=== PATIENT | female | born 1940 | race Caucasian/White ===

== ENCOUNTER 2016-11-30 12:45 | Inpatient (IN) | payer OTHER ==
--- NOTE | 2016-11-30 13:39 | EDPHY ---
H & P Stated Complaint: sent by pcp R hip fracture, surgery expecting Time Seen by Provider: 11/30/16 13:33 HPI/ROS: CHIEF COMPLAINT: Known right femoral neck fracture HISTORY OF PRESENT ILLNESS: 76-year-old female arrives via private vehicle. She initially went to the [facility] for complaints of right hip pain unable to bear weight after injuring the area anywhere between 3- 7 days ago. No direct trauma but does note that few days ago she twisted and felt a right hip pain. She was evaluated by the PA and Dr. Uribe at [facility] and they recommend she come to the ER, be admitted to the hospitalist service, remain NPO and possible surgery this evening. The patient denies: Head injury, back pain or injury, peripheral paresthesia, weakness, numbness last oral intake was 6:00 a.m. PRIMARY CARE PROVIDER: Dr. Naveen Aguirre [place] REVIEW OF SYSTEMS: A ten point review of systems was performed and is negative with the exception of the items mentioned in the HPI PAST MEDICAL & SURGICAL HISTORY: No anticoagulant use SOCIAL HISTORY:nonsmoker PHYSICAL EXAM (Prior to examination, patient consented to physical exam, hands were washed and my usual and customary physical exam procedures followed) 1) GENERAL: Well-developed, well-nourished, alert and oriented. 2) HEAD: Normocephalic, atraumatic 3) HEENT: Pupils equal, round, reactive to light bilaterally. Sclera anicteric. 4) NECK: Full range of motion, no meningeal signs. 5) LUNGS: Clear auscultation bilaterally. 6) HEART: Regular rate and rhythm, no murmur, no heave, no gallop. 7) ABDOMEN: No guarding, no rebound, no focal tenderness, 8) MUSCULOSKELETAL: Moving all extremities, no focal areas of tenderness, no obvious trauma. No peripheral edema or discoloration. 9) BACK: no visual or palpable abnormality. 10) SKIN: No rash, no petechiae. DIFFERENTIAL DIAGNOSIS: in no particular order including but not limited to fracture, dislocation, compartment syndrome, sprain, strain - Personal History Current Tetanus/Diphtheria Vaccine: Unsure Current Tetanus Diphtheria and Acellular Pertussis (TDAP): Unsure - Medical/Surgical History Hx Asthma: No Hx Chronic Respiratory Disease: No Hx Diabetes: No Hx Cardiac Disease: No Hx Renal Disease: No Hx Cirrhosis: No Hx Alcoholism: No Hx HIV/AIDS: No Hx Splenectomy or Spleen Trauma: No Other PMH: Asthma/chronic bronchitis, hx urosepsis with prolonged hospitaliztion in 2011, total bilateral knees ,. some ilateral pedal edema noted 11-28-14, incisions healing with slight erythema, seen by dr arteaga earlier this week, osteopenia - Social History Smoking Status: Never smoked Constitutional: Initial Vital Signs Temperature (C) 36.5 C 11/30/16 12:51 Heart Rate 85 11/30/16 12:51 Respiratory Rate 16 11/30/16 12:51 Blood Pressure 164/90 H 11/30/16 12:51 O2 Sat (%) 98 11/30/16 12:51 O2 Delivery Mode Room Air Allergies/Adverse Reactions: No Known Allergies Allergy (Unverified 02/17/12 16:59) Home Medications: Medication Instructions Recorded Amlodipine Besylate [Norvasc] 5 mg PO DAILY 11/28/14 Budesonide/Formoterol 160/4.5 1 puffs IH BID 11/30/16 [Symbicort 160-4.5 Mcg Inh (*)] Medical Decision Making - Diagnostics Imaging Results: Imaging Impressions Chest X-Ray 11/30/16 13:34 Impression: Normal except for minimal right middle lobe/lingular atelectasis. ED Course/Re-evaluation: The patient brought with her a printed photo of her hip x-ray which shows a right femoral neck fracture. The patient declines any imaging specifically of her hip at this time as she has just had this done at [facility]. I was contacted prior to the patient's arrival by PA with Dr. Diogenes Uribe that day request the patient be admitted the hospitalist service and they will possibly perform surgery this evening, request that she remain NPO 2:47 p.m.: Phone consultation with hospitalist Dr. Torres who will admit patient 3 pm: Phone call from Dr Uribe who will see patient in ER. - Data Points Laboratory Results: Laboratory Results 11/30/16 13:51 11/30/16 13:51 11/30/16 11/30/16 11/30/16 13:51 13:51 13:51 WBC 9.21 10^3/uL 10^3/uL (3.80-9.50) RBC 4.85 10^6/uL 10^6/uL (4.18-5.33) Hgb 14.4 g/dL g/dL (12.6-16.3) Hct 42.7 % % (38.0-47.0) MCV 88.0 fL fL (81.5-99.8) MCH 29.7 pg pg (27.9-34.1) MCHC 33.7 g/dL g/dL (32.4-36.7) RDW 13.5 % % (11.5-15.2) Plt Count 413 10^3/uL H 10^3/uL (150-400) MPV 8.9 fL fL (8.7-11.7) Neut % (Auto) 78.2 % H % (39.3-74.2) Lymph % (Auto) 13.8 % L % (15.0-45.0) Evangeline % (Auto) 6.4 % % (4.5-13.0) Eos % (Auto) 0.9 % % (0.6-7.6) Baso % (Auto) 0.4 % % (0.3-1.7) Nucleat RBC Rel Count 0.0 % % (0.0-0.2) Absolute Neuts (auto) 7.20 10^3/uL H 10^3/uL (1.70-6.50) Absolute Lymphs (auto) 1.27 10^3/uL 10^3/uL (1.00-3.00) Absolute Monos (auto) 0.59 10^3/uL 10^3/uL (0.30-0.80) Absolute Eos (auto) 0.08 10^3/uL 10^3/uL (0.03-0.40) Absolute Basos (auto) 0.04 10^3/uL 10^3/uL (0.02-0.10) Absolute Nucleated RBC 0.00 10^3/uL 10^3/uL (0-0.01) Immature Gran % 0.3 % % (0.0-1.1) Immature Gran # 0.03 10^3/uL 10^3/uL (0.00-0.10) PT 13.3 SEC SEC (12.0-15.0) INR 1.02 (0.83-1.16) APTT 24.6 SEC SEC (23.0-38.0) Sodium 140 mEq/L mEq/L (134-144) Potassium 4.6 mEq/L mEq/L (3.5-5.2) Chloride 103 mEq/L mEq/L (97-110) Carbon Dioxide 23 mEq/l mEq/l (22-31) Anion Gap 14 mEq/L mEq/L (8-16) BUN 31 mg/dL H mg/dL (7-23) Creatinine 0.8 mg/dL mg/dL (0.6-1.0) Estimated GFR > 60 Glucose 82 mg/dL mg/dL (70-100) Calcium 10.5 mg/dL H mg/dL (8.5-10.4) Medications Given: Discontinued Medications Hydromorphone HCl (Dilaudid) 0.5 mg IVP EDNOW ONE Stop: 11/30/16 13:56 Last Admin: 11/30/16 14:11 Dose: 0.5 mg Sodium Chloride (Ns) 500 mls @ 0 mls/hr IV ONCE ONE PRN Reason: Wide Open Stop: 11/30/16 14:56 Last Admin: 11/30/16 14:58 Dose: 500 mls Departure - Departure Disposition: [facility] In[facility] Acute Clinical Impression: Fracture of femoral neck, right Qualifiers: Encounter type: initial encounter Fracture type: closed Qualified Code(s): S72.001A - Fracture of unspecified part of neck of right femur, initial encounter for closed fracture Condition: Fair
[2016-11-30] MEDS ORDERED: HYDROmorphONE/DILAUDID 1 MG/ML SYR IVP ONE (13:55)
[2016-11-30 14:05] LABS: % IMMATURE GRANULYOCYTES 0.3 % (0.0-1.1); ABSOLUTE IMMATURE GRANULOCYTES 0.03 10^3/uL (0.00-0.10); ADD DIFF? NO; ADD MORPH? NO; ADD SCAN? NO; ATYPICAL LYMPHOCYTE FLAG 0 (0-99); FRAGMENT RBC FLAG 0 (0-99); HEMATOCRIT 42.7 % (38.0-47.0); HEMOGLOBIN 14.4 g/dL (12.6-16.3); LEFT SHIFT FLG 0 (0-99); LIPEMIA HEMOLYSIS FLAG 80 (0-99); MEAN CELL HEMOGLOBIN 29.7 pg (27.9-34.1); MEAN CELL HEMOGLOBIN CONCENTR. 33.7 g/dL (32.4-36.7); MEAN PLATELET VOLUME 8.9 fL (8.7-11.7); PLATELET CLUMPS FLAG 0 (0-99); PLATELET COUNT 413 10^3/uL (150-400); RED BLOOD CELL COUNT 4.85 10^6/uL (4.18-5.33); RED CELL DISTRIBUTION WIDTH 13.5 % (11.5-15.2)
[2016-11-30] MEDS ORDERED: ONDANSETRON 4 MG/2 ML VIAL ONE (14:05)
[2016-11-30 14:23] LABS: INR 1.02 (0.83-1.16); PROTIME(PATIENT) 13.3 SEC (12.0-15.0)
[2016-11-30 14:24] LABS: APTT 24.6 SEC (23.0-38.0)
[2016-11-30 14:28] LABS: ANION GAP 14 mEq/L (8-16); CALCIUM 10.5 mg/dL (8.5-10.4); CARBON DIOXIDE 23 mEq/l (22-31); CHLORIDE 103 mEq/L (97-110); CREATININE 0.8 mg/dL (0.6-1.0); GLOMERULAR FILTRATION RATE > 60; GLUCOSE 82 mg/dL (70-100); POTASSIUM 4.6 mEq/L (3.5-5.2); SODIUM 140 mEq/L (134-144)
[2016-11-30] MEDS ORDERED: NS 500 ML IV ONE (14:55)
--- NOTE | 2016-11-30 15:31 | SOAPPROG ---
SOAP Progress Note Assessment/Plan: Assessment: 76 female with displace right femoral neck fracture Consult dictated. P: OR Sat about 3 pm. Plan SANYA Plan: SANYA on 11/30/16 15:30 Objective: Vital Signs Temp Pulse Resp BP Pulse Ox 36.5 C 85 16 164/90 H 98 11/30/16 12:51 11/30/16 12:51 11/30/16 12:51 11/30/16 12:51 11/30/16 12:51 PT 13.3 SEC (12.0-15.0) 11/30/16 13:51 INR 1.02 (0.83-1.16) 11/30/16 13:51 ICD10 Worksheet Patient Problems: Problems Problem Status Onset Fracture of femoral neck, right Acute
--- NOTE | 2016-11-30 15:32 | CPEKG ---
Heart Rate: 86 RR Interval: 698 P-R Interval: 176 QRSD Interval: 84 QT Interval: 380 QTC Interval: 455 P [place]: 79 QRS [place]: 55 T Wave [place]: 63 EKG Severity - BORDERLINE ECG - EKG Impression: SINUS RHYTHM EKG Impression: BORDERLINE INFERIOR Q WAVES Electronically Signed By: Homar Griffin 30-Nov-2016 20:38:36
[2016-11-30] MEDS ORDERED: ENOXAPARIN 40 MG/0.4 ML SYR SC SCH (16:08)
[2016-11-30] MEDS ORDERED: ONDANSETRON 4 MG/2 ML VIAL IVP PRN (16:08)
[2016-11-30] MEDS ORDERED: ACETAMINOPHEN 325 MG TAB PO PRN (16:08)
--- NOTE | 2016-11-30 16:51 | GHP ---
[f rep st] HISTORY AND PHYSICAL DATE OF ADMISSION: 11/30/2016 CHIEF COMPLAINT: Hip pain. HISTORY OF PRESENT ILLNESS: This is a 76-year-old female who presents with complaints of right hip pain. The patient describes, over the course of the preceding 1-1/2 weeks, having groin discomfort on the right side with activity out in the yard. Patient noted discomfort that she suspected was fr om over-extending herself, stretching, and reaching while gardening. Patient had bilateral knee rep lacements and has limited ability to kneel, so finds herself in unusual positions in the yard trying to get things planted. Patient then iced, took [id number] pain medications, had some resolut ion. Then 48 hours prior to presentation, had more severe pain after an afternoon in the garden, pa rticularly with a semi-kneeling episode that she recalls placed a lot of strain on her right hip. P atevelina, again, iced and did not have improvement in her symptoms, and then noted, over the next 48 h ours, that the pain was so severe that she went from being able to ambulate, to not ambulate indepen dently but with a walker, to not being able to ambulate with her walker. Therefore, called her orth opedic surgeon for evaluation. She presented to the clinic today, and patient was noted to have a d isplaced right femoral neck fracture. Patient was transferred to the emergency department for evalu ation and admission for repair. In the ED, the patient is denying any chest pain, shortness of jitendra th. No nausea, vomiting. She is having right hip and leg discomfort. She is hungry. Denies any d ysuria, diarrhea, hematuria, or lower extremity edema. PAST MEDICAL HISTORY: 1. Episode of E coli sepsis that she reports she had multiple harassing resuscitations through with remnant renal dysfunction. 2. Asthma. 3. Arthritis with bilateral knee replacements. 4. Hypertension. SOCIAL HISTORY: Negative for tobacco. Occasional alcohol. No illicit drugs or marijuana. FAMILY HISTORY: Positive for arthritis. REVIEW OF SYSTEMS: A 10-point review of systems is negative with the exception of that reported in the HPI. ADVANCED DIRECTIVES: The patient wishes to be full cor, full tube. Her daughters would be her medi desi decision makers. PHYSICAL EXAMINATION: VITAL SIGNS: Blood pressure 164/90, heart rate 85, respiratory rate 16, 98% on room air, 36.5. GENERAL: This is a very healthy-appearing elderly female in no acute distress. HEENT: Notable for moist mucous membranes. Eye exam is negative for any icterus. CARDIAC: Patien t is regular rate and rhythm. PULMONARY: Good respiratory effort. Clear to auscultation bilateral ly. GASTROINTESTINAL: Positive bowel sounds. Abdomen is soft and nontender in all 4 quadrants. M USCULOSKELETAL: Negative for any lower extremity edema. Patient has pain of the right hip with juana n passive range of motion. NEUROLOGIC: She is alert and oriented x3. PSYCHIATRIC: She is pleasan t and cooperative on interview and examination. DATA: White count 9.2, hematocrit 42.7, platelets of 413. INR of 1.02. Creatinine is 0.8, BUN 31, sodium 142. Chest x-ray, which I personally reviewed and interpreted, shows no acute infiltrates o r edema. ASSESSMENT AND PLAN: This is a 76-year-old female, presenting with a right femoral neck fracture. 1. Acute displaced right femoral neck fracture. Patient will be made n.p.o. after breakfast tomorr ow for anticipated surgical repair by Dr. Uribe tomorrow afternoon. Will give 1 dose of Lovenox th is evening, then hold in the morning for surgery. Will continue IV pain medications p.r.n. for pain . 2. Asthma. The patient's lungs are clear. Will continue her home medications without alteration. 3. Chronic kidney disease. Patient's creatinine is 0.8 at presentation. Will simply follow. 4. Hypertension. Will continue patient's single agent antihypertensive. 5. Prophylaxis with Lovenox x1 and SCDs. 6. Diet. Regular until tomorrow morning. Disposition, expecting greater than 2 midnights. The patient is presenting with a displaced hip fra cture, requiring repair. /[id number]/MODL
--- NOTE | 2016-11-30 17:41 | GCON ---
[f rep st] CONSULTATION ORTHOPEDIC CONSULTATION DATE OF CONSULTATION: 11/30/2016 PROBLEM: Displaced right femoral neck fracture. HISTORY OF PRESENT ILLNESS: The patient is 76 years old. She has had mild pain in her right hip for about 2 weeks. Last Saturday, the hip became quite painful. She is not aware of any specific trauma. By Saturday, she felt better, and she tried to do some gardening work. After that, the hip was more painful. She has been limping around on it this week. She presented to my office this morning. Films there showed a displaced right femoral neck fracture. She is admitted for surgical treatment of the femoral neck fracture. PAST MEDICAL HISTORY: She is treated for hypertension and asthma. CURRENT MEDICATIONS: Amlodipine and a Symbicort inhaler. DRUG ALLERGIES: None. PHYSICAL EXAMINATION: She is a thin, alert, healthy-appearing elderly woman. Exam of her right leg shows pain in the hip with any attempts at motion. Her sciatic nerve is intact. IMAGING: Her films show a displaced femoral neck fracture. Moderate osteopenia. IMPRESSION ON ADMISSION: 1. Displaced right femoral neck fracture. 2. Treatment for hypertension. 3. Treatment for asthma. PLAN: She will undergo a right total hip arthroplasty for treatment of her displaced femoral neck fracture. The surgery has been described to her and to her daughter, including the risks, complications, expectations, and recovery time. Surgical and nonsurgical options have been reviewed with them. All of her questions have been answered, and she consents to surgery. /[id number]/MODL MTDD
[2016-11-30] MEDS: HYDROmorphONE/DILAUDID 1 MG/ML SYR IVP PRN (18:58)
[2016-11-30] MEDS ORDERED: HEPARIN 5,000 UNIT/0.5 ML SYR SC ONE (21:27)
[2016-11-30] MEDS: BUDESONIDE/FORMOTEROL 160/4.5 60 PUFFS/MDI IH SCH (22:09)
[2016-12-01] MEDS: HYDROmorphONE/DILAUDID 1 MG/ML SYR IVP PRN ×5 (01:09→22:17)
[2016-12-01 04:56] LABS: % IMMATURE GRANULYOCYTES 0.2 % (0.0-1.1); ABSOLUTE IMMATURE GRANULOCYTES 0.01 10^3/uL (0.00-0.10); ADD DIFF? NO; ADD MORPH? NO; ADD SCAN? NO; ATYPICAL LYMPHOCYTE FLAG 10 (0-99); FRAGMENT RBC FLAG 0 (0-99); HEMATOCRIT 36.9 % (38.0-47.0); HEMOGLOBIN 12.1 g/dL (12.6-16.3); LEFT SHIFT FLG 0 (0-99); LIPEMIA HEMOLYSIS FLAG 80 (0-99); MEAN CELL HEMOGLOBIN 29.5 pg (27.9-34.1); MEAN CELL HEMOGLOBIN CONCENTR. 32.8 g/dL (32.4-36.7); MEAN PLATELET VOLUME 9.2 fL (8.7-11.7); PLATELET CLUMPS FLAG 0 (0-99); PLATELET COUNT 344 10^3/uL (150-400); RED CELL DISTRIBUTION WIDTH 13.8 % (11.5-15.2)
[2016-12-01] MEDS: BUDESONIDE/FORMOTEROL 160/4.5 60 PUFFS/MDI IH SCH ×2 (08:14→19:52)
[2016-12-01] MEDS: amLODIPine BESYLATE 5 MG TAB PO SCH (08:59)
[2016-12-01] MEDS ORDERED: CHLORHEXIDINE GLUC HIBICLENS 118 ML BTL TP ONE ×2 (11:30→13:00)
[2016-12-01] MEDS ORDERED: CEFAZOLIN 2 GM/DEXTR 100 ML IV ONE (13:00)
[2016-12-01] MEDS ORDERED: FAMOTIDINE 20 MG TAB PO ONE (13:00)
[2016-12-01] MEDS ORDERED: ROPI/epiNEPH/KETOROLAC JOINT COCKTAIL IU ONE (13:00)
[2016-12-01] MEDS ORDERED: TRANEXAMIC ACID 1,100 MG in NS 100 ML IV ONE (13:00)
[2016-12-01] MEDS ORDERED: ACETAMINOPHEN 325 MG TAB PO ONE (13:00)
[2016-12-01] MEDS ORDERED: DEXAMETHASONE 4 MG/ML VIAL IVP ONE (13:00)
[2016-12-01] MEDS ORDERED: POVIDONE-IODINE 20 ML in SODIUM CL IRRIG SOLUTION 500 ML IRR ONE (13:00)
[2016-12-01] MEDS ORDERED: CEFAZOLIN 2 GM/DEXTROSE/100 ML BAG IV ONE (13:23)
[2016-12-01] MEDS ORDERED: ceFAZolin 1 GM/5 ML SYR ONE (13:35)
[2016-12-01] MEDS ORDERED: fentaNYL 100 MCG/2 ML INJ ONE ×2 (13:49→16:42)
[2016-12-01] MEDS ORDERED: PROPOFOL 200 MG/20 ML VIAL ONE ×2 (13:49)
[2016-12-01] MEDS ORDERED: DEXAMETHASONE 4 MG/ML VIAL ONE ×2 (13:50→15:03)
[2016-12-01] MEDS ORDERED: PROPOFOL/EMULSION 500 MG/50 ML BOTTLE IV ONE ×2 (13:54→15:42)
[2016-12-01] MEDS ORDERED: LIDOCAINE 2% 100 MG/5 ML SYR ONE (13:54)
[2016-12-01] MEDS ORDERED: ROCURONIUM 50 MG/5 ML VIAL ONE (13:54)
[2016-12-01] MEDS ORDERED: ACETAMINOPHEN 325 MG TAB ONE (14:09)
--- NOTE | 2016-12-01 14:18 | HOSPPROG ---
Hospitalist Progress Note Assessment/Plan: 76y female with c/o right hip pain. This is my first encounter, chart reviewed. D/W RN. #R femoral neck fx to OR today #Pain stable #Asthma stable #CKD stable #HTN cont meds #Dispo unclear to OR today PT/OT after Subjective: Feeling well. Some pain. No other specific issues. Objective: Vital Signs Temp Pulse Resp BP Pulse Ox 37.1 C 96 18 161/69 H 96 12/01/16 12:00 12/01/16 12:00 12/01/16 12:00 12/01/16 12:00 12/01/16 12:00 Laboratory Results 12/01/16 04:15 11/30/16 12/01/16 12/02/16 05:59 05:59 05:59 Intake Total 850 Output Total 275 400 Balance 575 -400 PT 13.3 SEC (12.0-15.0) 11/30/16 13:51 INR 1.02 (0.83-1.16) 11/30/16 13:51 - Physical Exam Constitutional: no apparent distress, appears nourished, uncomfortable Eyes: PERRL, anicteric sclera, EOMI Ears, Nose, Mouth, Throat: moist mucous membranes, hearing normal, ears appear normal Cardiovascular: No JVD, No tachycardia, No edema Respiratory: no respiratory distress, no rales or rhonchi, reduced air movement Gastrointestinal: No tenderness, No ascites, No guarding Skin: warm, normal color, No erythema Musculoskeletal: pain with ROM, muscular tenderness, generalized weakness Neurologic: AAOx3 Psychiatric: interacting appropriately, not anxious, not encephalopathic, thought process linear ICD10 Worksheet Patient Problems: Problems Problem Status Onset Fracture of femoral neck, right Acute
[2016-12-01] MEDS ORDERED: VANCOMYCIN 1 GM VIAL ONE (14:40)
[2016-12-01] MEDS ORDERED: ALBUTEROL HFA ANES ONLY 200 PUFFS/8.5 GM MDI IH ONE (14:40)
[2016-12-01] MEDS ORDERED: ONDANSETRON 4 MG/2 ML VIAL ONE (15:03)
[2016-12-01] MEDS ORDERED: HYDROmorphONE/DILAUDID 2 MG/ML INJ ONE ×2 (15:05→16:42)
[2016-12-01] MEDS ORDERED: SUGAMMADEX SODIUM 200 MG/2 ML VIAL IVP ONE (15:22)
[2016-12-01] MEDS ORDERED: DIPHENOXYLATE/ATROPINE LOMOTIL 1 TAB PO PRN (16:26)
[2016-12-01] MEDS ORDERED: PHARMACY PAIN CONSULT 1 EA MISC PRN (16:26)
[2016-12-01] MEDS ORDERED: diphenhydrAMINE 25 MG CAP PO PRN (16:26)
[2016-12-01] MEDS ORDERED: PROMETHAZINE HCL 25 MG/ML INJ IVP PRN (16:26)
[2016-12-01] MEDS ORDERED: MAGNESIUM HYDROXIDE 30 ML UDCUP PO PRN (16:26)
[2016-12-01] MEDS ORDERED: CYCLOBENZAPRINE 10 MG TAB PO PRN (16:26)
[2016-12-01] MEDS ORDERED: traMADol 50 MG TAB PO PRN (16:26)
[2016-12-01] MEDS ORDERED: LACTULOSE 20 GM/30 ML UDCUP PO PRN (16:26)
[2016-12-01] MEDS ORDERED: TEMAZEPAM 15 MG CAP PO PRN (16:26)
[2016-12-01] MEDS ORDERED: METOCLOPRAMIDE 10 MG/2 ML VIAL IVP PRN (16:26)
[2016-12-01] MEDS ORDERED: KETOROLAC 30 MG/1 ML SDV IVP PRN (16:26)
[2016-12-01] MEDS ORDERED: BISACODYL 10 MG SUPP PR PRN (16:26)
[2016-12-01] MEDS ORDERED: POLYETHYLENE GLYCOL 3350 17 GM PKT PO PRN (16:26)
--- NOTE | 2016-12-01 16:26 | POSTOPPROG ---
Post Op Note Date of Operation: 12/01/16 Surgeon: Diogenes Uribe Operator Assistant I Cementing: Dr. Cruz Anesthesiologist: Pamela Anesthesia: GET(General Endotracheal) Post-op Diagnosis: R femoral neck fracture Procedure: cemented R SANYA Inf/Abcess present in the surg proc area at time of surgery?: No EBL: 100-500
[2016-12-01] MEDS ORDERED: LR 1,000 ML IV SCH (16:30)
[2016-12-01] MEDS: SENNOSIDES/DOCUSATE SODIUM TAB PO SCH (19:51)
[2016-12-01] MEDS: FAMOTIDINE 20 MG TAB PO SCH (19:51)
[2016-12-01] MEDS: ONDANSETRON DISINTEGRATING 4 MG TAB PO PRN (19:52)
[2016-12-01] MEDS: oxyCODONE IR 5 MG TAB PO PRN (19:52)
[2016-12-01] MEDS: ASPIRIN 325 MG TAB PO SCH (19:52)
[2016-12-01] MEDS: ceFAZolin 2 GM/DEXTROSE 100 ML IV SCH (22:11)
[2016-12-02] MEDS: ONDANSETRON DISINTEGRATING 4 MG TAB PO PRN ×2 (04:23→08:24)
[2016-12-02] MEDS: oxyCODONE IR 5 MG TAB PO PRN ×3 (04:23→20:27)
[2016-12-02] MEDS: ceFAZolin 2 GM/DEXTROSE 100 ML IV SCH (04:24)
--- NOTE | 2016-12-02 05:06 | GOP ---
[f rep st] OPERATIVE REPORT DATE OF OPERATION: 12/01/2016 SURGEON: Diogenes Uribe MD FINAL TESTER: Naveen Cruz MD ANESTHESIA: General. ANESTHESIOLOGIST: Allen Santiago MD PREOPERATIVE DIAGNOSIS: POSTOPERATIVE DIAGNOSIS: Right hip displaced femoral neck fracture. PROCEDURE PERFORMED: Cemented right total hip arthroplasty. Elburn chrome femoral head on highly c ross-linked polyethylene cup liner. FINDINGS: DESCRIPTION OF PROCEDURE: The patient was given 2 g of preoperative IV Ancef within 60 minutes of s urgery. She also received IV tranexamic acid at a dose of 20 mg/kg. She is placed on the operating room table and given general anesthesia by Dr. Santiago. A Rodriguez catheter was not used. She wore a T ED stocking and SCD on the nonoperative leg. She was rolled to the left lateral decubitus position. The position was secured with the pegboard table attachment. An axillary roll was used and all pr essure points were carefully padded. I was careful to lock her pelvis in a vertical position. Her perineum was isolated with plastic adhesive drapes. Her right hip and right lower extremity were pr epped with ChloraPrep. They were draped free using sterile sheets, stockinette, and Ioban plastic a dhesive drape. The World Health Organization time-out was performed to verify the correct patient, identity and the correct surgical side and site. The [place] time-out was also performed. I made a 5-inch straight oblique posterolateral hip skin incision. The subcutaneous tissues were sh arply divided and hemostasis was obtained using electrocautery. Her fascia doron was identified and split along the axis of its fibers. I curved posteriorly and proximally and split the fascia of glu teus rosa and bluntly split the muscle fibers in line with their orientation. The Charnley self- retaining retractor was inserted. Her sciatic nerve was located and protected throughout the proced ure. The external rotators and the posterior hip capsule were divided at separate layers at the bas e of the femoral neck, tagged and reflected posteriorly. A smooth 8-inch Steinmann pin was inserted vertically into the ilium superior to the acetabulum to act as a retractor. The fractured femoral head was dislocated posteriorly and removed. I osteotomized the neck at the appropriate level and i nclination. I was careful to preserve all the anterior and posterior capsule. The remnant of the labrum was exc ised. The femur was prepared first. This allowed me to sap hana developer the amount of natural femoral neck anteversi on. This, in turn, allowed me to later determine the correct amount of cup anteversion. She had ap proximately 15-20 degrees of natural femoral neck anteversion. The canal was opened laterally with a box chisel. I broached sequentially up to a size 5. I was using the Accolate 2 stem. I was care ful to lateralize adequately. Appropriate retractors were inserted to expose the acetabulum. The acetabulum was reamed sequential ly up to 49 mm. I selected a 50 mm Kimo Tritanium cluster hole hemispherical shell. This was ta pped securely into place in the proper degree of inclination and anteversion. I used the transverse acetabular ligament and other her other natural acetabular bony landmarks to help me properly orien t the cup. I inserted a 30 mm and a 20 mm supplemental fixation screw through the shell. I also in serted a screw and metal dome hole plug. I performed a series of trial reductions, and concluded that the size 5 stem with a -4 mm neck lengt h and a 32 mm head with a 10 degree lipped liner gave me the proper combination of appropriate lengt h and good anterior and posterior stability. The 10 degree lipped Kimo X3 highly cross-linked polyethylene liner was inserted and tapped laila knight into place. Her canal was prepared for cementing. It was carefully cleaned with the pulsating lavage and with a bottle brush. A plastic distal cement restrictor was inserted. I packed the sandra l with epinephrine-soaked sponge. A double batch of methylmethacrylate high viscosity cement with 2 g of added vancomycin powder was mixed. It was inserted down the canal and pressurized. I selecte d the Mcgill Accolate 2, CC stem. A 12 mm distal centralizer was attached. The cement was injecte d and pressurized. The stem was then inserted. It was held in the proper position while the cement hardened. Excess cement was removed before it hardened. I did 1 final trial reduction with a 32 m m head and a -4 mm neck length. She had excellent anterior and posterior stability and appropriate length. The 32 mm Elburn chrome Mcgill head with a -4 mm neck length was tapped securely onto the clean trunnion. The acetabulum was irrigated and cleaned and the hip was reduced 1 final time. 40 mL of the joint anesthetic cocktail were injected into the capsule, the deep musculature and the subcutaneous tissues along the skin edges. Her sciatic nerve was reinspected and looked unharmed. The external rotators and the posterior hip capsule were repaired in separate layers with #2 FiberWi re sutures through drill holes in the greater trochanter. This provided a strong posterior capsular and external rotator repair. The fascia doron was closed first with first with two #2 arxeoq-od-rek ht FiberWire sutures followed by a running #2 barbed Ethicon Stratafix PDO suture. The subcutaneous tissues were closed in layers with interrupted 2-0 Monocryl sutures. The skin was closed with a ru nning 3-0 barbed Ethicon Stratafix Monoderm subcuticular suture. The skin edges were reapproximated and sealed with Dermabond glue. The wound was covered with a strip of Telfa, and everything was he ld in place with a piece of clear plastic Tegaderm. A long-leg RIDGE stocking and SCD were applied to her right lower extremity. She wore a stocking and SCD on the opposite leg during the procedure. An abduction pillow was placed between her knees. Tash leon was awakened from anesthesia and rolled to the supine position on her [facility]. She was ta danica to PACU in satisfactory condition. There were no recognized intraoperative complications. The estimated blood loss was about 200 mL. The sponge and needle count were correct on 2 occasions. I used a Mcgill Tritanium hemispherical cluster hole acetabular shell with an outside diameter of 5 0 mm. The liner was a Kimo X3 10-degree lipped highly cross-linked liner with an inside diameter of 32 mm. I used a 20 mm and a 30 mm supplemental fixation screws through the acetabular shell. T he femoral component was a cemented Mcgill Accolate C in a size 5 with standard offset. The femora l head was a Mcgill cobalt chrome head with a -4 mm neck length and a [address] Mark Cruz, acted as a surgical sales representative. His assistance was a medical necessity. POSTOPERATIVE DIAGNOSIS: Right hip displaced femoral neck fracture. /[id number]/[facility]
[2016-12-02 05:24] LABS: HEMATOCRIT 37.7 % (38.0-47.0); HEMOGLOBIN 12.4 g/dL (12.6-16.3)
--- NOTE | 2016-12-02 08:56 | HOSPPROG ---
Hospitalist Progress Note Assessment/Plan: 76y female with c/o right hip pain. #R femoral neck fx POD #1 #Pain stable #Asthma stable #CKD stable #Nausea/emesis likely related to surgery cont supportive care #Acute hypoxemia related to surgery ATX aggressive therapy #HTN cont meds #Dispo unclear home in am with HHC? PT/OT after Subjective: Up in chair. Feels ok. Still having some nausea. Pain controlled. Objective: Vital Signs Temp Pulse Resp BP Pulse Ox 36.8 C 99 16 142/59 H 90 L 12/02/16 04:04 12/02/16 08:00 12/02/16 08:00 12/02/16 08:00 12/02/16 08:00 Laboratory Results 12/02/16 04:22 12/01/16 12/02/16 12/03/16 05:59 05:59 05:59 Intake Total 850 1920 Output Total 275 1100 Balance 575 820 PT 13.3 SEC (12.0-15.0) 11/30/16 13:51 INR 1.02 (0.83-1.16) 11/30/16 13:51 - Physical Exam Constitutional: no apparent distress, appears nourished, not in pain Eyes: PERRL, anicteric sclera, EOMI Ears, Nose, Mouth, Throat: moist mucous membranes, hearing normal Cardiovascular: regular rate and rhythym, No JVD, No edema Respiratory: no respiratory distress, reduced air movement Gastrointestinal: normoactive bowel sounds, No tenderness, No ascites Skin: warm, normal color Musculoskeletal: pain with ROM, muscular tenderness, generalized weakness Neurologic: AAOx3 Psychiatric: interacting appropriately, not anxious, not encephalopathic ICD10 Worksheet Patient Problems: Problems Problem Status Onset Fracture of femoral neck, right Acute
[2016-12-02] MEDS: amLODIPine BESYLATE 5 MG TAB PO SCH (09:16)
[2016-12-02] MEDS: ASPIRIN 325 MG TAB PO SCH (09:17)
[2016-12-02] MEDS: SENNOSIDES/DOCUSATE SODIUM TAB PO SCH ×2 (09:18→20:27)
[2016-12-02] MEDS: FAMOTIDINE 20 MG TAB PO SCH ×2 (09:18→20:27)
[2016-12-02] MEDS: FERROUS SULFATE 140 MG TAB.ER PO SCH (09:18)
--- NOTE | 2016-12-02 09:27 | SOAPPROG ---
SOAP Progress Note Assessment/Plan: Assessment: 76 female with displace right femoral neck fracture Consult dictated. P: OR Sat about 3 pm. Plan SANYA Plan: SANYA on 11/30/16 15:30 12/02/16 09:25 Afebrile. Awake and alert. Mild pain. Walking in room. Sciatic nerve intact. Dsg is dry. No swelling. Films look good. H/H is good. P: DC on Mon. Dsg is water proof. Can shower.' Give 2 page DC instruction sheet which is in the chart. Weight bear as tolerated. Abd pillow in bed for 3 weeks. RIDGE hose for 1 week. ASA 325 daily for 21 days. Office appt in 3 weeks. Objective: Vital Signs Temp Pulse Resp BP Pulse Ox 36.8 C 99 16 142/59 H 90 L 12/02/16 04:04 12/02/16 08:00 12/02/16 08:00 12/02/16 08:00 12/02/16 08:00 Laboratory Results 12/02/16 04:22 12/01/16 12/02/16 12/03/16 05:59 05:59 05:59 Intake Total 850 1920 Output Total 275 1100 Balance 575 820 PT 13.3 SEC (12.0-15.0) 11/30/16 13:51 INR 1.02 (0.83-1.16) 11/30/16 13:51 ICD10 Worksheet Patient Problems: Problems Problem Status Onset Fracture of femoral neck, right Acute
[2016-12-02] MEDS: BUDESONIDE/FORMOTEROL 160/4.5 60 PUFFS/MDI IH SCH ×2 (09:42→20:27)
[2016-12-03] MEDS: oxyCODONE IR 5 MG TAB PO PRN ×3 (03:57→08:51)
[2016-12-03 05:05] LABS: HEMATOCRIT 30.7 % (38.0-47.0); HEMOGLOBIN 10.2 g/dL (12.6-16.3)
[2016-12-03 07:18] VITALS: BP 140/54; PULSE 87; RESP 16; TEMP 99.2
[2016-12-03] MEDS: ASPIRIN 325 MG TAB PO SCH (08:42)
[2016-12-03] MEDS: amLODIPine BESYLATE 5 MG TAB PO SCH (08:43)
[2016-12-03] MEDS: SENNOSIDES/DOCUSATE SODIUM TAB PO SCH (08:43)
[2016-12-03] MEDS: FERROUS SULFATE 140 MG TAB.ER PO SCH (08:43)
[2016-12-03] MEDS: FAMOTIDINE 20 MG TAB PO SCH (08:43)
[2016-12-03 08:46] VITALS: O2SAT 88
--- NOTE | 2016-12-03 09:14 | PDIAF ---
- Diagnosis Diagnosis: hip fx Code Status: Full Code - Medication Management Discharge Medications: Medications to Continue on Transfer Amlodipine Besylate [Norvasc] 5 mg PO DAILY 11/28/14 [Last Taken 11/30/16] Budesonide/Formoterol 160/4.5 [Symbicort 160-4.5 Mcg Inh (*)] 1 puffs IH BID [Last Taken 11/30/16 one dose] Aspirin [Aspirin 325 mg (*)] 325 mg PO DAILY tab 12/03/16 [Last Taken Unknown] Famotidine [Pepcid 20 MG (*)] 20 mg PO BID #0 tab 12/03/16 [Last Taken Unknown] Ferrous Sulfate [Slow Fe 140 MG (*)] 140 mg PO DAILY #30 tab.er 12/03/16 [Last Taken Unknown] Polyethylene Glycol 3350 [Miralax 17 gm (*)] 17 gm PO DAILY PRN #0 pkt 12/03/16 [Last Taken Unknown] Sennosides/Docusate Sodium [Senokot-S] 1 - 2 tab PO BID tab 12/03/16 [Last Taken Unknown] celeCOXIB [Celebrex (*)] 200 mg PO DAILY #30 cap 12/03/16 [Last Taken Unknown] oxyCODONE IR [Oxycodone Ir (*)] 5 - 10 mg PO Q3HRS PRN #20 tab 12/03/16 [Last Taken Unknown] Discharge Medications: Refer to the Discharge Home Medication list for PRN reason. PICC Care - Routine: N/A - Orders Services needed: Home Care, Physical Therapy, Occupational Therapy Home Care Face to Face: I certify that this patient was under my care and that I had the required [id number] encounter meeting the encounter requirements on the discharge day. My findings support the fact that the patient is homebound as defined in CMS Chapter 7 Medicare Benefits Manual 30.1.1, The condition of the patient is such that there exists a normal inability to leave home and consequently, leaving home would require a considerable and taxing effort. Diet Recommendation: no restrictions on diet - Follow Up Care Current Providers and Referrals: Irlanda Torres MD [Medical Doctor] - 12/21/16 10:15 am Diogenes Uribe MD [Primary Care Provider] - As per Instructions
[2016-12-03] MEDS: BUDESONIDE/FORMOTEROL 160/4.5 60 PUFFS/MDI IH SCH (09:35)
--- NOTE | 2016-12-03 09:44 | GDS ---
[f rep st] DISCHARGE SUMMARY DISCHARGE DIAGNOSES: 1. Right femoral neck fracture. 2. Pain. 3. History of asthma. 4. History of chronic kidney disease. 5. Nausea. 6. Acute hypoxemia. 7. History of hypertension. CONSULTATIONS: Dr. Uribe of orthopedics. STUDIES AND PROCEDURES DONE: Cemented right total hip arthroplasty. PHYSICAL EXAM: GENERAL: The patient is alert. VITAL SIGNS: Afebrile at 37.3, pulse is 87, respir atory rate 16, blood pressure is 140/54. She is saturating 88% on room air. I have seen and evaluated the patient on the day of discharge. HOSPITAL COURSE: The patient is a 76-year-old female, who presented to the hospital with complaints of hip pain. She was evaluated and diagnosed with: 1. Right femoral neck fracture. During this hospitalization, she received surgical intervention bucky r Dr. Uribe. She is doing well in the postoperative setting and will be discharged home with home health care. 2. Pain. This is controlled. 3. History of asthma. There are no signs of exacerbation at time of disposition. 4. Chronic kidney disease. This is stable prior to discharge. 5. Nausea. This is in the postoperative setting and has resolved. Patient is tolerating a regular diet. 6. Acute hypoxemia. This has resolved, as well as likely secondary to atelectasis related to surgi desi intervention. 7. History of hypertension. Her home medications have been continued. DISPOSITION: The patient will be discharged home with home health care, PT and OT. There are no pe nding studies. DISCHARGE MEDICATIONS: Please refer to EMR form. I have not adjusted the patient's previously pres cribed home medications. I have given her a prescription for oxycodone IR as well as slow release i abdiaziz and Celebrex. I spent greater than 35 minutes in the care, coordination and management of the patient's dispositio n. /[id number]/MODL
--- NOTE | 2016-12-03 10:01 | SOAPPROG ---
SOEMMANUEL Progress Note Assessment/Plan: Assessment: L SANYA Plan: Home today ASA for DVT prophalaxsis f/u with Dr. Uribe 12/03/16 10:00 Subjective: min pain Objective: Vital Signs Temp Pulse Resp BP Pulse Ox 37.3 C 87 16 140/54 H 88 L 12/03/16 07:17 12/03/16 07:17 12/03/16 07:17 12/03/16 07:17 12/03/16 08:44 Laboratory Results 12/03/16 04:30 12/02/16 12/03/16 12/04/16 05:59 05:59 05:59 Intake Total 1920 1650 Output Total 1100 200 Balance 820 1650 -200 PT 13.3 SEC (12.0-15.0) 11/30/16 13:51 INR 1.02 (0.83-1.16) 11/30/16 13:51 nvi in BLE ICD10 Worksheet Patient Problems: Problems Problem Status Onset Fracture of femoral neck, right Acute
== END 2016-12-03 10:51 | disposition home health service (06) | DRG 470 ==
LOC: F3N 18:46
PROVIDERS: ADMIT Hospitalist; ATTEND Hospitalist
PROC: 0SR9049 Replacement of Right Hip Joint with Ceramic on Polyethylene Synthetic Substitute, Cemented, Open Approach (ICD-10-PCS; principal; 2016-12-01 14:45)
DX: S72.001A Fracture of unspecified part of neck of right femur, initial encounter for closed fracture (principal); J45.909 Unspecified asthma, uncomplicated; I12.9 Hypertensive chronic kidney disease with stage 1 through stage 4 chronic kidney disease, or unspecified chronic kidney disease; N18.9 Chronic kidney disease, unspecified; R09.02 Hypoxemia; X50.9XXA Other and unspecified overexertion or strenuous movements or postures, initial encounter; Z96.653 Presence of artificial knee joint, bilateral
CPT/HCPCS: 96374; 97116-GP; 97162-GP; 97165-GO; 97535-GO; C1713; G8978-GP-CI; G8978-GP-CJ; G8979-GP-CI; G8980-GP-CI; G8987-GO-CI; G8988-GO-CI; G8989-GO-CI; J0171; J0690; J1100; J1170; J1650; J1885; J2001; J2405; J2704; J2795; J3010; J3370

== ENCOUNTER 2017-02-18 08:23 | Inpatient (IN) | payer OTHER ==
--- NOTE | 2017-02-17 07:47 | GHP ---
[f rep st] PREOP HISTORY AND PHYSICAL DATE OF ADMISSION: 02/18/2017 PREOPERATIVE DIAGNOSIS: Osteoarthritis, right shoulder. PLANNED PROCEDURE: Right total shoulder arthroplasty. HISTORY: Simran Kinsey is a 76-year-old female with slowly worsening shoulder pain and limited function. We have tried cortisone injections, physical therapy, activity modification, which have not improve d her symptoms. She is really quite limited by her range of motion and pain at this point, and we h ave decided to proceed with a total shoulder, possibly a reverse shoulder arthroplasty. PAST MEDICAL HISTORY: Asthma. PAST SURGICAL HISTORY: She has had knee replacements bilaterally in 2014, a total hip arthroplasty in November of 2016, hysterectomy, rectal cancer, and arthroscopic knee procedure in 1984. MEDICATIONS: Amlodipine, meloxicam, a ProAir inhaler and Symbicort. She also takes fish oil, vitam in D, calcium, and glucosamine. ALLERGIES: Ampicillin. SOCIAL HISTORY: She works as a theater director. She is a former smoker. Occasional alcohol use. REVIEW OF SYSTEMS: No shortness of breath or chest pain. Otherwise, review of systems is unremarka ble. PHYSICAL EXAM: VITAL SIGNS: She is 5 feet tall and weighs 118 pounds. BMI is 23. Blood pressure is 170/72, pulse is 66, respiratory rate is 14 on room air. GENERAL: Alert and oriented x3. HEENT : Normocephalic, atraumatic. Extraocular muscles intact. NECK: Supple. There is no lymphadenopa thy. No JVD. CHEST: Clear to auscultation. CARDIOVASCULAR: Regular rate and rhythm. ABDOMEN: Soft, nontender, nondistended. There is no hepatosplenomegaly. EXTREMITIES: Focusing on the right shoulder, there is no obvious atrophy. Active range of motion. She has full extension and only ab out 90 degrees of forward flexion. There is quite a bit of glenohumeral crepitus with that. 20 deg jamir of external rotation, 30 degrees of internal rotation. Motor strength: Supraspinatus does hav e function at 4/5, infraspinatus 4/5, subscapularis 4+/5. She has 2+ radial and ulnar pulses. X-RAYS: Two views of the shoulder show severe glenohumeral arthritis. ASSESSMENT: Severe glenohumeral arthritis with cuff function probably intact. PLAN: I had a long discussion with Simran Kinsey. I think she has adequate cuff function to support a to diana shoulder arthroplasty. I did explain to her if cuff function was poor or torn, we would proceed with a reverse shoulder arthroplasty. Risks and benefits of both procedures were discussed includtess marito limited range of motion postoperatively. I would expect with a total shoulder she gets 140 degre es of forward flexion, reverse shoulder 120 degrees of forward flexion, and some weakness in externa l rotation with that. She is in agreement with this plan. We will plan [facility] surgery [facility]. /[id number]/MODL
[2017-02-18] MEDS ORDERED: THROMBIN (BOVINE) 5,000 UNIT VIAL TP ONE (08:49)
[2017-02-18] MEDS ORDERED: POLYMYXIN B SULFATE 500,000 UNIT/10 ML SYR IRR ONE (08:50)
[2017-02-18] MEDS ORDERED: BACITRACIN 50,000 UNITS/10 ML SYR IRR ONE (08:50)
[2017-02-18] MEDS ORDERED: BUPIVACAINE 0.5% 30 ML SDV ONE (08:50)
[2017-02-18] MEDS ORDERED: CALCIUM CHLORIDE 1 GM/10 ML INJ ONE (08:50)
[2017-02-18] MEDS ORDERED: ceFAZolin 2 GM/DEXTROSE 100 ML IV ONE (08:55)
[2017-02-18] MEDS ORDERED: LR 1,000 ML IV ONE (09:08)
--- NOTE | 2017-02-18 09:11 | PDHPUP ---
History & Physical Update H&P update statement: This history and physical update is based on an assessment of the patient which was completed after admission or registration (within 24 hours), but prior to the surgery/procedure. H&P update: H&P reviewed & patient examined, no change in patient's condition since H&P completed
[2017-02-18] MEDS ORDERED: MIDAZOLAM 2 MG/2 ML VIAL ONE (09:25)
[2017-02-18] MEDS ORDERED: fentaNYL 100 MCG/2 ML INJ ONE (09:25)
[2017-02-18] MEDS ORDERED: LIDOCAINE 1% 2 ML INJ ONE (09:32)
--- NOTE | 2017-02-18 09:39 | PDANEPAE ---
ANE History of Present Illness r shoulder OA ANE Past Medical History - Cardiovascular History Hx Hypertension: Yes Hx Arrhythmias: No Hx Chest Pain: No Hx Coronary Artery / Peripheral Vascular Disease: No Hx CHF / Valvular Disease: No Hx Palpitations: No Cardiovascular History Comment: pcp monitors bp meds - Pulmonary History Hx COPD: No Hx Asthma/Reactive Airway Disease: Yes Hx Recent Upper Respiratory Infection: No Hx Oxygen in Use at Home: No Hx Sleep Apnea: No Sleep Apnea Screening Result - Last Documented: Negative Pulmonary History Comment: asthma. hx of bronchitis - Neurologic History Hx Cerebrovascular Accident: No Hx Seizures: No Hx Dementia: No - Endocrine History Hx Diabetes: No - Renal History Hx Renal Disorders: Yes Renal History Comment: hx of urosepsis in 2011. ckd - Liver History Hx Hepatic Disorders: No - Neurological & Psychiatric Hx Hx Neurological and Psychiatric Disorders: No - Cancer History Hx Cancer: No - Congenital Disorder History Hx Congenital Disorders: No - GI History Hx Gastrointestinal Disorders: No - Other Health History Other Health History: wears contacts. osteopenia - Chronic Pain History Chronic Pain: Yes (shoulder) - Surgical History Prior Surgeries: 12/01/16 right SANYA with [facility] for traumatic femoral neck fx. Bilateral tka's 2014 ANE Review of Systems - Exercise capacity METS (RN): 4 METS ANE Patient History - Allergies Allergies/Adverse Reactions: No Known Allergies Allergy (Verified 02/14/17 12:03) - Home Medications Home Medications: AMLODIPINE BESYLATE [AMLODIPINE BESYLATE] 5 mg PO DAILY 02/12/17 [Last Taken ] Budesonide/Formoterol 160/4.5 [Symbicort 160-4.5 Mcg Inh (*)] 1 puffs PO BID 02/21 [Last Taken 02/18/17] Calcium Carbonate [Oyster Shell Calcium 500 mg (*)] 500 mg PO DAILY 02/12/17 [ Last Taken 02/18/17] Cholecalciferol Vit D3 [Vitamin D3 (*)] 1,000 units PO DAILY 02/12/17 [Last Taken 02/18/17] [place]-3 Fatty Acids [Fish Oil 1000 mg (*)] 1,000 mg PO DAILY 02/12/17 [Last Taken 02/18/17] - NPO status NPO Since - Liquids (Date): 02/18/17 NPO Since - Liquids (Time): 06:30 NPO Since - Solids (Date): 02/17/17 NPO Since - Solids (Time): 20:00 - Smoking Hx Smoking Status: Never smoked - Family Anes Hx Family Hx Anesthesia Complications: none ANE Labs/Vital Signs - Vital Signs Blood Pressure: 176/85 Heart Rate: 80 Respiratory Rate: 18 O2 Sat (%): 96 Height: 157.48 cm Weight: 54.431 kg ANE Physical Exam - Airway Neck exam: FROM Mallampati Score: Class 1 Mouth exam: normal dental/mouth exam - Pulmonary Pulmonary: no respiratory distress - Cardiovascular Cardiovascular: regular rate and rhythym - ASA Status ASA Status: II ANE Anesthesia Plan Anesthesia Plan: general endotracheal anesthesia Regional Anesthesia: interscalene BP NB
[2017-02-18] MEDS ORDERED: PROPOFOL 200 MG/20 ML VIAL ONE (09:42)
[2017-02-18] MEDS ORDERED: ONDANSETRON 4 MG/2 ML VIAL IVP PRN (11:01)
[2017-02-18] MEDS ORDERED: fentaNYL 100 MCG/2 ML INJ IVP PRN (11:01)
[2017-02-18] MEDS ORDERED: PROMETHAZINE HCL 25 MG/ML INJ IVP PRN (11:01)
[2017-02-18] MEDS ORDERED: NALOXONE HCL 0.4 MG/ML INJ IVP PRN (11:01)
[2017-02-18] MEDS ORDERED: HYDROmorphONE/DILAUDID 1 MG/ML SYR IVP PRN (11:01)
[2017-02-18] MEDS ORDERED: ROPIVACAINE HCL 150 MG/30 ML INJ ONE (11:52)
[2017-02-18] MEDS ORDERED: ROCURONIUM 50 MG/5 ML VIAL ONE (11:52)
[2017-02-18] MEDS ORDERED: DEXAMETHASONE 4 MG/ML VIAL ONE (11:52)
[2017-02-18] MEDS ORDERED: ONDANSETRON 4 MG/2 ML VIAL ONE (11:52)
[2017-02-18] MEDS ORDERED: KETOROLAC 15 MG/1 ML SDV IVP ONE ×2 (11:54→14:30)
[2017-02-18] MEDS ORDERED: HYDROCODONE/APAP 5/325 TAB PO PRN (11:54)
[2017-02-18] MEDS ORDERED: TEMAZEPAM 15 MG CAP PO PRN (11:54)
--- NOTE | 2017-02-18 11:54 | POSTOPPROG ---
Post Op Note Date of Operation: 02/18/17 Surgeon: Jeffery Pringle Irrigator Gravity Flow: daisy menjivar Anesthesiologist: shani Anesthesia: GET(General Endotracheal) Pre-op Diagnosis: oa RT shoulder Post-op Diagnosis: same Procedure: rt tsa Inf/Abcess present in the surg proc area at time of surgery?: No EBL: 100-500 Complications: none
--- NOTE | 2017-02-18 12:16 | POSTANESTH ---
Post Anesthetic Evaluation Cardiovascular Status: Normal, Stable Respiratory Status: Normal, Stable Level of Consciousness/Mental Status: Can Participate in Eval Pain Control: Adequate, Prn Tx Ordered Nausea/Vomiting Control: Adequate, Prn Tx Ordered Complications Possibly Related to Anesthesia: None Noted
[2017-02-18] MEDS: ceFAZolin 2 GM/DEXTROSE 100 ML IV SCH (17:59)
--- NOTE | 2017-02-18 19:00 | GOP ---
[f rep st] OPERATIVE REPORT DATE OF OPERATION: 02/18/2017 SURGEON: Jeffery Pringle MD PAINT BOOTH OPERATOR: Naveen Kelly, EDISCOVERY PROJECT MANAGER, [facility]. ANESTHESIA: Interscalene block with general. ANESTHESIOLOGIST: Dr. Rowe PREOPERATIVE DIAGNOSIS: Osteoarthritis, right shoulder. POSTOPERATIVE DIAGNOSIS: Osteoarthritis, right shoulder. PROCEDURE PERFORMED: Right total shoulder arthroplasty. FINDINGS: INDICATIONS: The patient is a 76-year-old female, who has slowly worsening osteoarthritis of the ri ght shoulder. She has failed to improve with conservative management including activity modificatio n, injections. Decision was made to proceed with a total shoulder arthroplasty. DESCRIPTION OF PROCEDURE: After an appropriate informed consent was obtained, the patient was taken to the operating room. An interscalene block had been placed in the preoperative area. She was po sitioned in the beach chair position. After the administration of general endotracheal tube anesthe brian, the head of the bed was elevated to about 45 degrees. Right shoulder was prepped and draped in usual sterile fashion. Using a deltopectoral interval, skin was incised. The cephalic vein was identified and retracted to penn the lateral side. The deltoid was elevated off, the clavipectoral fascia was incised. The sub scapularis was identified on the lesser tuberosity. The biceps tendon was tenodesed with two #2 Fib erWires. The circumflex humeral vessels were identified, just at the level of the pectoralis major tendon and cauterized. I released the upper 1 cm of the pectoralis tendon insertion on the humerus, I then elevated the subscapularis off the lesser tuberosity and placed two #2 FiberWire stay suture s in the subscapularis. The humeral head was dislocated by externally rotating the arm and the infe rior capsule was released at the inferior aspect of the humeral head to the 6 o'clock position. The axillary nerve was protected throughout the entirety of the case. Using an oscillating saw, I made my humeral head neck cut, humeral head measured to 48. We then prepared our humeral head with our starting broaches, up to a size 7 and then we broached up to a size 10 using our rotation reference guide and the forearm. Broach was removed, and a size 10 humeral head cap was placed to protect the humeral bone. We then placed a Darrach retractor posteriorly around the glenoid and humeral head, retracting it out of the way. We had an anterior glenoid retractor anteriorly. The remainder of th e labrum and anterior capsule was released. The inferior capsule was released from the glenoid as w ananda, again, being careful to protect the axillary nerve throughout the entirety of the case. We then used our sizing guide for the glenoid, the medium gave us the best coverage, both anterior-p osterior and superior-inferior. We drilled our starting center pin and then drilled both superior, inferior and the 3 inferior holes. Using our reamer over the center pin, we reamed the glenoid. In strumentation was withdrawn. We trialed the medium glenoid, this gave us good coverage again, anter ior-posterior and superior-inferior. Trials were removed. Irrigated the glenoid with pulsatile lav age. Cement was prepared on the back table. We then cemented the holes in the glenoid, pressurized them, and then implanted our glenoid, tapped it into place. Excess cement was removed. We then turned our attention back to the humeral preparation. We drilled 2 holes between the lesser and the greater tuberosities. Sutures had been passed through the eyelets in the final stem, and u zulma Cassidy suture passer, these were brought out through the humeral bone. We tapped our final stem into place and impacted it. We tightened both the trunnion screw and the inferior screw. We t hen trialed our heads; a 48 was a little loose anterior-posterior, the 50 gave us better stability. Using the Walker taper, we tapped our final #50 x [address], and reduced the humeral head. Good range of motion of the shoulder, on cross-body abduction, the shoulder was stable. We irrigat ed the wound a final time. The subscapularis was repaired back with the FiberWire suture that had b een passed through the stem, performing a double row repair, securely fixing the subscapularis back to the bone. Wound was irrigated. The deltoid interval was closed with 0 Vicryl, superficial layer s closed with 2-0 Vicryl, skin was closed with 3-0 Monocryl stitch. Steri-Strips were applied to th e skin. A sterile occlusive dressing was applied. The patient was awakened from anesthesia, taken to the recovery room in satisfactory condition. The re were no immediate intraoperative complications. Yadiel Kelly's assistance was required throughou t the entire case. IMPLANTS: An [employer] [place] 10 mm humeral stem, Arthrex cemented glenoid medium, and a 50 x 2 1 [employer] humeral head. COMPLICATIONS: None. DRAINS: None. /[id number]/MODL
[2017-02-18] MEDS: BUDESONIDE/FORMOTEROL 160/4.5 60 PUFFS/MDI IH SCH (19:39)
[2017-02-18] MEDS: OXYCODONE/APAP 5/325 TAB PO PRN (21:15)
[2017-02-19] MEDS: ceFAZolin 2 GM/DEXTROSE 100 ML IV SCH (02:07)
[2017-02-19] MEDS: OXYCODONE/APAP 5/325 TAB PO PRN ×2 (03:01→06:25)
[2017-02-19 07:31] VITALS: BP 140/50; PULSE 68; RESP 20; TEMP 98.8; O2SAT 89
[2017-02-19] MEDS: oxyCODONE IR 5 MG TAB PO PRN ×2 (08:05→11:53)
[2017-02-19] MEDS ORDERED: oxyCODONE IR 5 MG TAB ONE (08:09)
--- NOTE | 2017-02-19 08:24 | SOAPPROG ---
SOAP Progress Note Assessment/Plan: Assessment: POD#1 RT TSA Plan: 02/19/17 08:23 DC home oxycodone prn pain f/u [place] 10-14 days May remove dressing Saturday and shower Subjective: Ready to go home Objective: DRessing c/d/i interscalene block worn off moving fingers 2+ radial pulse Vital Signs Temp Pulse Resp BP Pulse Ox 37.1 C 68 20 140/50 H 89 L 02/19/17 07:29 02/19/17 07:29 02/19/17 07:29 02/19/17 07:29 02/19/17 07:29 02/18/17 02/19/17 02/20/17 05:59 05:59 05:59 Intake Total 265 Output Total 700 Balance -435 ICD10 Worksheet Patient Problems: Problems Problem Status Onset Fracture of femoral neck, right Acute
[2017-02-19] MEDS: BUDESONIDE/FORMOTEROL 160/4.5 60 PUFFS/MDI IH SCH (08:57)
[2017-02-19] MEDS ORDERED: CHOLECALCIFEROL VIT D3 1,000 UNITS TAB PO SCH (09:00)
[2017-02-19] MEDS ORDERED: CALCIUM CARBONATE 500 MG TAB PO SCH (09:00)
[2017-02-19] MEDS ORDERED: amLODIPine BESYLATE 5 MG TAB PO SCH (09:00)
[2017-02-19] MEDS ORDERED: OMEGA-3 FATTY ACIDS 1,000 MG CAP PO SCH (09:00)
== END 2017-02-19 12:37 | disposition home or self-care (01) | DRG 483 ==
LOC: F3N 08:46
PROVIDERS: ADMIT Orthopaedic Surgery; ATTEND Orthopaedic Surgery
PROC: 0RRJ0JZ Replacement of Right Shoulder Joint with Synthetic Substitute, Open Approach (ICD-10-PCS; principal; 2017-02-18 10:15)
DX: M19.011 Primary osteoarthritis, right shoulder (principal); J45.40 Moderate persistent asthma, uncomplicated; Z96.653 Presence of artificial knee joint, bilateral; Z96.641 Presence of right artificial hip joint; Z85.048 Personal history of other malignant neoplasm of rectum, rectosigmoid junction, and anus; Z87.891 Personal history of nicotine dependence
CPT/HCPCS: J0690; J1100; J1885; J2250; J2405; J2704; J2795; J3010

== ENCOUNTER 2017-03-19 07:27 | Emergency (ER) | payer OTHER ==
[2017-03-19 07:48] VITALS: TEMP 98.2; O2SAT 97
[2017-03-19] MEDS ORDERED: LIDOCAINE 2% JELLY 5 ML TUBE TP ONE (07:54)
--- NOTE | 2017-03-19 07:59 | EDPHY ---
H & P Stated Complaint: 5 d of constipation . Feels impacted. recent shoulder surgery Time Seen by Provider: 03/19/17 07:42 HPI/ROS: CHIEF COMPLAINT: Constipation History by patient HISTORY OF PRESENT ILLNESS: 68-year-old woman with a history of rectal surgery secondary to rectal cancer and recent shoulder surgery for which she has been taking OxyContin presents complaining of constipation for the last week. The patient states she has been unable to have any kind of bowel movement. She has tried MiraLax, prune juice plus milk of magnesia and last night tried an enema which she says she has had some leaking of stool water but is unable to pass any formed stool. She complains of pain in her rectal area. She also has some mild lower abdominal pain the particularly in her rectal area. She has a longstanding history of constipation, but has never been this bad before. She says she has not been taking her fiber or eating well. She did stop taking OxyContin 3 days ago because she felt it was contributing. She denies any nausea or vomiting. She has been able to eat. She denies any fever. She denies any back pain. REVIEW OF SYSTEMS: As in HPI, and all other systems reviewed and are negative Source: Patient - Personal History Current Tetanus Diphtheria and Acellular Pertussis (TDAP): Yes - Medical/Surgical History Hx Asthma: Yes Hx Chronic Respiratory Disease: No Hx Diabetes: No Hx Cardiac Disease: No Hx Renal Disease: Yes Hx Cirrhosis: No Hx Alcoholism: No Hx HIV/AIDS: No Hx Splenectomy or Spleen Trauma: No Other PMH: Asthma/chronic bronchitis, hx urosepsis with prolonged hospitaliztion in 2011, total bilateral knees ,. some ilateral pedal edema noted 11-28-14, incisions healing with slight erythema, seen by dr mccary earlier this week, osteopenia, HTN, chronic kidney failure, HTN - Social History Smoking Status: Former smoker - Physical Exam Exam: General Appearance: Alert, nontoxic-appearing. Eyes: Pupils equal and round no pallor or injection. ENT, Mouth: Mucous membranes moist. Respiratory: Normal, effort, lungs are clear to auscultation. No wheezes, rales or rhonchi. Cardiovascular: Regular rate and rhythm. S1, S2, no murmurs, gallops or rubs appreciated Gastrointestinal: bowel sounds present and active, Abdomen is soft and with mild diffuse especially lower abdominal tenderness, positive lower midline ventral hernia which is mildly tender her reducible Rectal: No visible fissure or tear but marked anal sphincter tenderness, positive brown stool leakage and soft stool in vault Back: No CVA tenderness, no bony tenderness Neurological: Awake, alert and oriented x 3, no pronator drift, normal gait, no pronator drift Skin: Warm and dry, no rashes. Musculoskeletal: No deformities or tenderness. Extremitie:s full range of motion, no edema Psychiatric: Patient has normal affect, there is no agitation. Constitutional: Initial Vital Signs Temperature (C) 36.8 C 03/19/17 07:30 Heart Rate 93 03/19/17 07:30 Respiratory Rate 24 H 03/19/17 07:30 Blood Pressure 144/75 H 03/19/17 07:30 O2 Sat (%) 97 03/19/17 07:30 O2 Delivery Mode Room Air Allergies/Adverse Reactions: No Known Allergies Allergy (Verified 03/19/17 07:41) Home Medications: Medication Instructions Recorded AMLODIPINE BESYLATE 5 mg PO DAILY 02/12/17 Budesonide/Formoterol 160/4.5 1 puffs PO BID 02/12/17 [Symbicort 160-4.5 Mcg Inh (*)] Calcium Carbonate [Oyster Shell 500 mg PO DAILY 02/12/17 Calcium 500 mg (*)] Cholecalciferol Vit D3 [Vitamin D3 1,000 units PO DAILY 02/12/17 (*)] [place]-3 Fatty Acids [Fish Oil 1000 1,000 mg PO DAILY 02/12/17 mg (*)] oxyCODONE IR [Oxycodone Ir (*)] 5 - 10 mg PO Q4H PRN #0 tab 02/19/17 Lidocaine 2% Jelly [Lidocaine 2% 1 applic TID #1 tube 03/19/17 Jelly 30 gm] Medical Decision Making ED Course/Re-evaluation: 68-year-old woman presents with constipation and painful rectum x5 days. She was having some stool leakage but significant perianal pain so she was given topical lidocaine after which she was still unable to pass any stool. She was therefore given a soapsuds enema after she was able to pass a large amount of stool. On re-evaluation she was feeling much better after this although she had some mild persistent lower abdominal tenderness. She also felt like she had more stool to pass and requesting further enema. - Data Points Medications Given: Discontinued Medications Lidocaine (Lidocaine 2% Jelly) 1 kiersten TP EDNOW ONE Stop: 03/19/17 07:55 Last Admin: 03/19/17 08:09 Dose: Not Given Lidocaine (Uroject Lidocaine 2% Jelly) 20 ml UR EDNOW ONE Stop: 03/19/17 08:04 Last Admin: 03/19/17 08:09 Dose: 20 ml Departure - Departure Disposition: Home, Routine, Self-Care Clinical Impression: Constipation Qualifiers: Constipation type: unspecified constipation type Qualified Code(s): K59.00 - Constipation, unspecified Condition: Fair Instructions: Constipation (ED) Additional Instructions: You were seen by Dr. Arlette Rausch today. You may use the topical lidocaine jelly for pain prior to BM/ Make sure to include plenty of fiber in your diet. Drink plenty of fluids. Avoid opiate pain medicine. Return if you develop any abdominal pain, vomiting , fever or inability to pass stool again. Please follow-up with her primary care physician. Return for any worsening or new concerns. Referrals: Max Blount DO [Primary Care Provider] - As per Instructions Prescriptions: Lidocaine 2% Jelly [Lidocaine 2% Jelly 30 gm] 1 applic TID #1 tube
[2017-03-19] MEDS ORDERED: LIDOCAINE 2% JELLY 20 ML (UROJECT) UR ONE (08:03)
[2017-03-19 12:09] VITALS: BP 155/73; PULSE 92; RESP 20
== END 2017-03-19 12:07 | disposition home or self-care (01) ==
LOC: CED 07:27
DX: K59.00 Constipation, unspecified (principal); J45.909 Unspecified asthma, uncomplicated; I10 Essential (primary) hypertension; Z87.891 Personal history of nicotine dependence

== ENCOUNTER → 2017-04-19 | Outpatient (CLI) | payer OTHER | LOC: CIMAGING 10:24 | PROVIDERS: ATTEND Family Medicine | DX: Z12.31 Encounter for screening mammogram for malignant neoplasm of breast (principal) | CPT/HCPCS: G0202 ==

== ENCOUNTER → 2017-06-20 | Outpatient (CLI) | payer OTHER | LOC: FIMAGING 17:37 | PROVIDERS: ATTEND Registered Nurse | DX: S29.9XXA Unspecified injury of thorax, initial encounter (principal) ==

== ENCOUNTER → 2018-03-20 | Outpatient (CLI) | payer OTHER | LOC: CIMAGING 09:25 | PROVIDERS: ATTEND Internal Medicine Pulmonary Disease | DX: Z13.83 Encounter for screening for respiratory disorder NEC (principal); R91.1 Solitary pulmonary nodule; I31.3 Pericardial effusion (noninflammatory); I25.10 Atherosclerotic heart disease of native coronary artery without angina pectoris; K44.9 Diaphragmatic hernia without obstruction or gangrene; N13.30 Unspecified hydronephrosis; Z85.038 Personal history of other malignant neoplasm of large intestine; Z87.891 Personal history of nicotine dependence ==

== ENCOUNTER → 2018-05-16 | Outpatient (CLI) | payer OTHER | LOC: BHCLAF 14:15 | PROVIDERS: ATTEND Internal Medicine Cardiovascular Disease | DX: R06.02 Shortness of breath (principal); I25.10 Atherosclerotic heart disease of native coronary artery without angina pectoris; I10 Essential (primary) hypertension | CPT/HCPCS: 93306-PO ==

== ENCOUNTER → 2018-06-09 | Outpatient (CLI) | payer OTHER | LOC: CIMAGING 13:00 | PROVIDERS: ATTEND Family Medicine | DX: R92.8 Other abnormal and inconclusive findings on diagnostic imaging of breast (principal) | CPT/HCPCS: 76641-PO ==

== ENCOUNTER 2018-08-06 09:31 | Inpatient (IN) | payer OTHER ==
[2018-08-06] MEDS ORDERED: TRANEXAMIC ACID 3,000 MG/50 ML BAG IRR ONE (09:42)
[2018-08-06] MEDS ORDERED: ceFAZolin 1 GM/5 ML SYR ONE (09:43)
[2018-08-06] MEDS ORDERED: LR 1,000 ML IV ONE (10:02)
[2018-08-06] MEDS ORDERED: ACETAMINOPHEN 325 MG TAB PO ONE (10:02)
[2018-08-06] MEDS ORDERED: GABAPENTIN 300 MG CAP PO ONE (10:02)
[2018-08-06] MEDS ORDERED: DEXAMETHASONE 4 MG/ML VIAL IVP ONE (10:02)
[2018-08-06] MEDS ORDERED: LIDOCAINE 1% 2 ML INJ ID PRN (10:02)
[2018-08-06] MEDS ORDERED: FAMOTIDINE 20 MG TAB PO ONE (10:02)
[2018-08-06] MEDS ORDERED: ceFAZolin 2 GM/DEXTROSE 100 ML IV ONE (10:02)
[2018-08-06] MEDS ORDERED: ONDANSETRON 4 MG/2 ML VIAL IVP ONE (10:02)
--- NOTE | 2018-08-06 10:50 | PDHPUP ---
History & Physical Update H&P update statement: This history and physical update is based on an assessment of the patient which was completed after admission or registration (within 24 hours), but prior to the surgery/procedure. H&P update: H&P reviewed & patient examined
[2018-08-06 10:56] LABS: PLATELET COUNT 350 10^3/uL (150-400)
[2018-08-06] MEDS ORDERED: POVIDONE-IODINE 20 ML in SODIUM CL IRRIG SOLUTION 500 ML IRR ONE (11:00)
[2018-08-06] MEDS ORDERED: VANCOMYCIN HCL/NORMAL SALINE 250 ML IV ONE (11:00)
[2018-08-06] MEDS ORDERED: TRANEXAMIC ACID 3,000 MG in NS (SYRINGE) 50 ML IRR ONE (11:00)
[2018-08-06] MEDS ORDERED: ROPIVACAINE 0.2% 80 MG, EPINEPHrine 0.2 MG, KETOROLAC TROMETHAMINE 30 MG in SYRINGE 0 ML IU ONE (11:00)
[2018-08-06] MEDS ORDERED: TRANEXAMIC ACID 1,000 MG in NS 100 ML IV ONE (11:00)
--- NOTE | 2018-08-06 11:07 | PDANEPAE ---
ANE Past Medical History - Cardiovascular History Hx Hypertension: Yes Hx Arrhythmias: No Hx Chest Pain: No Hx Coronary Artery / Peripheral Vascular Disease: No Hx CHF / Valvular Disease: No Hx Palpitations: No Cardiovascular History Comment: pcp monitors bp meds - Pulmonary History Hx COPD: Yes Hx Asthma/Reactive Airway Disease: Yes Hx Recent Upper Respiratory Infection: No Hx Oxygen in Use at Home: Yes O2 in Use at Home (L/minute): 2l at noc Hx Sleep Apnea: No Sleep Apnea Screening Result - Last Documented: Negative Pulmonary History Comment: asthma. hx of bronchitis - Neurologic History Hx Cerebrovascular Accident: No Hx Seizures: No Hx Dementia: No - Endocrine History Hx Diabetes: No - Renal History Hx Renal Disorders: Yes Renal History Comment: hx of urosepsis in 2011. ckd - Liver History Hx Hepatic Disorders: No - Neurological & Psychiatric Hx Hx Neurological and Psychiatric Disorders: No - Cancer History Hx Cancer: Yes Cancer History Comment: rectal ca - Congenital Disorder History Hx Congenital Disorders: No - GI History Hx Gastrointestinal Disorders: Yes Gastrointestinal History Comment: hx of rectal ca - Other Health History Other Health History: none - Chronic Pain History Chronic Pain: Yes (left hip) - Surgical History Prior Surgeries: 02/18/17 right total shoulder with [place]. 12/01/16 right SANYA with [facility] for traumatic femoral neck fx. Bilateral tka's 2014 ANE Review of Systems Review of Systems: - Exercise capacity METS (RN): 4 METS ANE Patient History - Allergies Allergies/Adverse Reactions: No Known Allergies Allergy (Verified 08/05/18 10:46) - Home Medications Home Medications: Budesonide/Formoterol 160/4.5 [Symbicort 160-4.5 Mcg Inh (*)] 1 puffs PO BID 02/21 [Last Taken 08/05/18 08:30] Calcium Carbonate [Oyster Shell Calcium 500 mg (*)] 500 mg PO DAILY 02/12/17 [ Last Taken 08/05/18 08:30] Cholecalciferol Vit D3 [Vitamin D3 (*)] 1,000 units PO DAILY 02/12/17 [Last Taken 08/05/18 08:30] Monroe-3 Fatty Acids [Fish Oil 1000 mg (*)] 1,000 mg PO DAILY 02/12/17 [Last Taken 08/05/18 08:30] Glucosamine Sulfate [Glucosamine Sulfate 500 MG (*)] 500 mg PO DAILY 07/29/18 [ Last Taken 08/06/18 08:30] Herbals/Supplements -Info Only 1 ea PO DAILY 07/29/18 [Last Taken 07/30/18] Multivitamins [Multivitamin (*)] 1 each PO DAILY 07/29/18 [Last Taken 08/05/18 08:30] Naproxen Sodium [Aleve 220 MG (*)] 220 mg PO BID 07/29/18 [Last Taken 08/03/18] amLODIPine BESYLATE [Norvasc 5 mg (*)] 7.5 mg PO DAILY 07/29/18 [Last Taken 08:30] - NPO status NPO Since - Liquids (Date): 08/06/18 NPO Since - Liquids (Time): 08:00 NPO Since - Solids (Date): 08/05/18 NPO Since - Solids (Time): 19:00 - Smoking Hx Smoking Status: Former smoker - Family Anes Hx Family Hx Anesthesia Complications: none ANE Labs/Vital Signs - Labs Result Diagrams: 08/06/18 10:25 08/06/18 10:25 - Vital Signs Blood Pressure: 147/79 Heart Rate: 90 Respiratory Rate: 16 O2 Sat (%): 97 Height: 154.94 cm Weight: 56.699 kg ANE Physical Exam - ASA Status ASA Status: III ANE Anesthesia Plan Anesthesia Plan: spinal
[2018-08-06] MEDS ORDERED: MIDAZOLAM 2 MG/2 ML VIAL ONE (11:20)
[2018-08-06] MEDS ORDERED: fentaNYL 100 MCG/2 ML INJ ONE (11:20)
[2018-08-06] MEDS ORDERED: PROPOFOL/EMULSION 500 MG/50 ML BOTTLE IV ONE (11:20)
[2018-08-06] MEDS ORDERED: BUPIVACAINE/DEXTROSE 7.5MG/ML 2 ML SPINAL AMP SP ONE (11:22)
[2018-08-06] MEDS ORDERED: PROMETHAZINE HCL 25 MG/ML INJ IVP PRN (13:40)
[2018-08-06] MEDS ORDERED: DIPHENOXYLATE/ATROPINE LOMOTIL 1 TAB PO PRN (13:40)
[2018-08-06] MEDS ORDERED: ONDANSETRON DISINTEGRATING 4 MG TAB PO PRN (13:40)
[2018-08-06] MEDS ORDERED: POLYETHYLENE GLYCOL 3350 17 GM PKT PO PRN (13:40)
[2018-08-06] MEDS ORDERED: PROMETHAZINE HCL 25 MG SUPPR PR PRN (13:40)
[2018-08-06] MEDS ORDERED: METOCLOPRAMIDE 10 MG/2 ML VIAL IVP PRN (13:40)
[2018-08-06] MEDS ORDERED: diphenhydrAMINE 25 MG CAP PO PRN (13:40)
[2018-08-06] MEDS ORDERED: ONDANSETRON 4 MG/2 ML VIAL IVP PRN ×2 (13:40→13:42)
[2018-08-06] MEDS ORDERED: NS 500 ML IV PRN (13:40)
[2018-08-06] MEDS ORDERED: CYCLOBENZAPRINE 10 MG TAB PO PRN (13:40)
[2018-08-06] MEDS ORDERED: MAGNESIUM HYDROXIDE 30 ML UDCUP PO PRN (13:40)
[2018-08-06] MEDS ORDERED: LACTULOSE 20 GM/30 ML UDCUP PO PRN (13:40)
[2018-08-06] MEDS ORDERED: TEMAZEPAM 15 MG CAP PO PRN (13:40)
[2018-08-06] MEDS ORDERED: BISACODYL 10 MG SUPP PR PRN (13:40)
--- NOTE | 2018-08-06 13:41 | POSTOPPROG ---
Post Op Note Date of Operation: 08/06/18 Surgeon: Diogenes Uribe Chief Knowledge Officer: Eli Anesthesiologist: Dr. Elliot Guillen Anesthesia: IV Sedation, Spinal Post-op Diagnosis: Left hip severe degenerative arthritis. Possible avascular necrosis. Part Procedure: Left total hip arthroplasty. Repair of gluteus medius tendon. Findings: Partial tear of gluteus medius tendon. Inf/Abcess present in the surg proc area at time of surgery?: No EBL: 500-1000
[2018-08-06] MEDS ORDERED: PHENYLEPHRINE HCL 100 MCG/ML SYR IVP PRN (13:42)
[2018-08-06] MEDS ORDERED: NALOXONE HCL 0.4 MG/ML INJ IVP PRN (13:42)
[2018-08-06] MEDS ORDERED: LR 500 ML IV PRN (13:42)
[2018-08-06] MEDS ORDERED: fentaNYL 100 MCG/2 ML INJ IVP PRN (13:42)
[2018-08-06] MEDS ORDERED: oxyCODONE IR 5 MG TAB PO PRN (13:42)
--- NOTE | 2018-08-06 13:43 | POSTANESTH ---
Post Anesthetic Evaluation Cardiovascular Status: Similar to Pre-Op Cond Respiratory Status: Similar to Pre-op Cond. Level of Consciousness/Mental Status: Can Participate in Eval Pain Control: Adequate, Prn Tx Ordered Nausea/Vomiting Control: Adequate, Prn Tx Ordered Complications Possibly Related to Anesthesia: None Noted
[2018-08-06] MEDS ORDERED: LR 1,000 ML IV SCH (14:00)
--- NOTE | 2018-08-06 14:28 | GOP ---
[f rep st] OPERATIVE REPORT DATE OF OPERATION: 08/06/2018 SURGEON: Diogenes Uribe MD NEUROSURGEON: Diogenes Uribe MD. MARINE ELECTRICIAN HELPER: 1. Shaw Ramirez PA-C. 2. Vidal Justin CFA. ANESTHESIA: A combination of Marcaine, spinal and IV sedation. ANESTHESIOLOGIST: Dr. Elliot Guillen. PREOPERATIVE DIAGNOSIS: Left hip degenerative arthritis. POSTOPERATIVE DIAGNOSIS: 1. Left hip degenerative arthritis, possible avascular necrosis. 2. Partial tear of gluteus medius tendon, left hip. PROCEDURE PERFORMED: 1. Left total hip arthroplasty, ceramic femoral head on highly cross-linked polyethylene cup liner. 2. Repair of gluteus medius tendon. FINDINGS: ESTIMATED BLOOD LOSS: About 400 mL. DESCRIPTION OF PROCEDURE: The patient was given 1 g of preoperative IV vancomycin within 60 minutes of surgery. She also received 1000 mg of IV tranexamic acid. She was placed on the operating room t able and given spinal anesthesia with Marcaine by Dr. Guillen. She was then placed supine and given I V sedation. A Rodriguez catheter was not used. She wore a RIDGE stocking and SCD on the nonoperative leg. She was rolled to the right lateral decubitus position. The position was secured with the pegboard table attachment. An axillary roll was used and all pressure points were carefully padded. She has a right total shoulder arthroplasty. I was careful to pad and protect her shoulder. I was careful to lock her pelvis in a vertical position. Her perineum was isolated with plastic adhesive drapes. The left hip and left lower extremity were prepped with ChloraPrep. They were draped free using ster ile sheets, stockinette and Ioban plastic drapes. The [employer] time-out was performed to verify the correct patient identity and the c orrect surgical side and site. The [place] time-out was also performed. I made a 5-inch straight oblique posterolateral hip skin incision. The subcutaneous tissues were sha rply divided and hemostasis was obtained using electrocautery. Her fascia doron was identified and sp lit along the axis of its fibers. She had a significant collection of fluid in the trochanteric burs al area, which was released when I released her fascia doron. She had approximately 50% tear of the g luteus medius tendon. This is primarily the anterior attachment. I curved the incision posteriorly and proximally and split the fascia of the gluteus rosa and bluntly split the muscle fibers inline with their orientation. The Charnley self-retaining retractor was inserted. Her sciatic nerve was located and protected throughout the procedure. The external rotators and the posterior hip capsule were divided as separate layers at the base of the femoral neck, tagged and reflected posteriorly. A n 8-inch Steinmann pin was inserted vertically into the ilium, superior to the acetabulum. An 8-inch drill bit was inserted vertically into the greater trochanter and parallel to the first pin. The di stance between the two was measured for leg length reference. Her femoral head was dislocated auto roller iorly. She had a lot of delamination of the articular cartilage and subchondral bone in the superior aspect of her femoral head. This looked like avascular necrosis. Her femoral neck was osteotomized at the appropriate level and inclination. I was careful to preserve all the posterior capsule and most of the anterior capsule. The remnant of her damaged labrum was excised. I prepared the femur first. This allowed me to linderman machine operator the amount of natural femoral neck anteversion. This, in turn, allowed me to later determine the correct amount of cup anteversion. She had approx imately 15 degrees of natural femoral neck anteversion. The canal was opened laterally with a box ch roslyn. I hand broached sequentially up to size 4. I used a size 4 Accolade II broach with standard o ffset as a trial stem. I was careful to lateralize adequately. Appropriate retractors were inserted to expose the acetabulum. The acetabulum was reamed sequentiall y up to 49 mm. I selected the 50 mm Accord Tritanium Trident II cluster hole hemispherical shell. This tapped securely into place in the proper degree of inclination and anteversion. I used the bermeo sverse acetabular ligament and other acetabular bony landmarks to help me orient the cup. I inserted a single 30 mm transfixation screw for supplemental fixation. I performed a series of trial reductions to determine length and stability. I obtained an intraopera tive cross-table AP pelvis x-ray. I concluded that the size 4 stem with the standard offset neck wit h the -4 mm neck was the proper combination. This gave me appropriate length and good anterior and p osterior stability. She was a little bit short preoperatively and I was trying to lengthen her a few millimeters. I thought the cup needed a few more degrees of anteversion. I went back and changed t he cup and added about 5 or 10 degrees more anteversion. The 10-degree lip Kimo X3 highly cross-l inked polyethylene liner was inserted and tapped securely into place. The Accord Accolade II stem i n a size 4 with standard offset was inserted, press fit and was very tight. I did 1 final trial redu ction and confirmed that the -4 mm neck length with a 32 mm head was the proper combination. The Str [employer] Biolox Delta ceramic head with an outside diameter of 32 mm and a neck length of -4 mm was tappe d securely into place. The acetabulum was irrigated, cleaned and the hip was reduced 1 final time. She had excellent anterior and posterior stability and appropriate lengthening. 40 mL of the joint anesthetic cocktail was injected into the capsule, the deep musculature and the davis bcutaneous tissues along the skin edges. The joint was thoroughly irrigated 1 final time with a dilu te Betadine solution. Her sciatic nerve was rechecked and looked unharmed. 50 mL of tranexamic acid solution was injected into the wound and left in place. Her external rotators and the posterior hip capsule were repaired in separate layers with #2 FiberWire sutures through drill holes in the greate r trochanter. I then proceeded to repair her gluteus medius partial tear. I had to extend the incision distally 1 inch to obtain adequate exposure. The roughened osteophytic area of the greater trochanter was clean ed and smoothed with a rongeur. This created raw cancellous surfaces. I inserted 2 Arthrex BioCompo site corkscrews. Each of these had #2 FiberWire sutures. They were inserted at an oblique angle fro m distal to proximal to create a tense stake-like affect. The FiberWire sutures were passed through the torn stump of the gluteus medius. The hip was held in external rotation and abduction while the sutures were tied. This provided a stable repair of the torn portion of her gluteus medius. Her fascia doron was closed first with 2 interrupted [id number] #2 FiberWire sutures followed by a running #2 barbed Ethicon Stratafix PDO suture. The subcutaneous tissues were closed in layers wit h interrupted 2-0 Monocryl sutures followed by a running 0 barbed Ethicon Stratafix Monoderm suture. The skin was closed with a running 3-0 barbed Ethicon Stratafix Monoderm subcuticular suture. The s kin edges were reapproximated and sealed with Dermabond glue. The wound was covered with a large Mep ilex waterproof dressing. A sterile Mepilex sacral dressing was also applied. A long-leg RIDGE stocking and SCD were applied to her left lower extremity. She wore a stocking and SC D on the opposite leg during the procedure. An abduction pillow was placed between her knees. She w as awakened from anesthesia and rolled to the supine position on her [facility]. She was taken to PACU in satisfactory condition. There were no recognized intraoperative complications. COUNTS: The sponge and needle count were correct on 2 occasions. I used a Kimo Trident II Tritanium hemispherical press-fit cluster hole acetabular shell with an o utside diameter of 50 mm. The liner was a Kimo X3 10-degree lipped highly cross-linked liner with an inside diameter of 32 mm. The femoral component was a standard offset Accolade II stem in a size 4 and press fit. The femoral head was a Accord Biolox Delta ceramic head with a -4 mm neck length and a 32 mm outside diameter. Pritesh Ramirez and Vidal Justin acted as surgical assistants. Their assistance was a medical necess ity for safe completion of the procedure. /[id number]/MODL
[2018-08-06] MEDS: oxyCODONE IR 5 MG TAB PO PRN ×2 (16:14→21:38)
[2018-08-06] MEDS: ceFAZolin 2 GM/DEXTROSE 100 ML IV SCH (18:23)
[2018-08-06] MEDS: KETOROLAC 15 MG/1 ML SDV IVP SCH ×2 (18:23→23:23)
[2018-08-06] MEDS: ACETAMINOPHEN 325 MG TAB PO SCH ×2 (18:24→23:23)
[2018-08-06] MEDS: ASPIRIN 325 MG TAB PO SCH (21:21)
[2018-08-06] MEDS: SENNOSIDES/DOCUSATE SODIUM TAB PO SCH (21:22)
[2018-08-06] MEDS: BUDESONIDE/FORMOTEROL 160/4.5 60 PUFFS/MDI IH SCH (21:37)
[2018-08-06] MEDS: FAMOTIDINE 20 MG TAB PO SCH (22:21)
--- NOTE | 2018-08-06 23:05 | PDMN ---
Medical Necessity Medical necessity: Pt meets IP criteria as of 08/06/2018 per and [facility] – [place], [place] [address] ( SANYA); Medicare IP only procedure
[2018-08-07] MEDS: ACETAMINOPHEN 325 MG TAB PO SCH ×2 (05:19→11:28)
[2018-08-07] MEDS: KETOROLAC 15 MG/1 ML SDV IVP SCH ×2 (05:20→11:22)
[2018-08-07] MEDS: ceFAZolin 2 GM/DEXTROSE 100 ML IV SCH (05:21)
[2018-08-07] MEDS: oxyCODONE IR 5 MG TAB PO PRN ×2 (06:13→11:28)
--- NOTE | 2018-08-07 07:26 | SOAPPROG ---
SOAP Progress Note Assessment/Plan: Assessment: Afebrile. Awake and alert. Minimal pain. She has been up and walking. Her dressing is dry. Sciatic nerve intact. She needed Rodriguez catheterization in the PACU, but she has been voiding spontaneously since then. Postop H&H are good. Postop films look good. Plan: Physical therapy today. Discharged later today. 50% weight-bearing for 3 weeks because of the gluteus medius tendon repair. She will go to outpatient physical therapy at my office. 08/07/18 07:25 Objective: Vital Signs Temp Pulse Resp BP Pulse Ox 36.6 C 72 16 122/49 H 95 08/07/18 04:00 08/07/18 04:00 08/07/18 04:00 08/07/18 04:00 08/07/18 04:00 Laboratory Results 08/07/18 04:20 08/06/18 10:25 08/06/18 08/07/18 08/08/18 05:59 05:59 05:59 Intake Total 1450 1439 Output Total 1400 Balance 50 1439 ICD10 Worksheet Patient Problems: Problems Problem Status Onset Osteoarthritis of left hip Acute Fracture of femoral neck, right Acute Osteoarthritis of right glenohumeral joint Acute
[2018-08-07] MEDS ORDERED: traMADol 50 MG TAB PO PRN (07:33)
--- NOTE | 2018-08-07 07:42 | GDS ---
[f rep st] DISCHARGE SUMMARY ADMISSION DIAGNOSIS: Left hip severe degenerative arthritis. DISCHARGE DIAGNOSES: 1. Left hip severe degenerative arthritis. 2. Left hip partial gluteus medius tendon tear. OPERATION PERFORMED: 08/06/2018 1. Left total hip arthroplasty. 2. Repair of gluteus medius tendon tear. POSTOPERATIVE COMPLICATIONS: None. CONDITION ON DISCHARGE: Improved. DESCRIPTION OF HOSPITAL COURSE: The patient was admitted to the hospital on the morning of surgery. Her preoperative CBC, electrolytes, BUN and creatinine were normal. The same day, under a combinati on of Marcaine, spinal, and IV sedation, she underwent a left total hip arthroplasty and repair of th e gluteus medius tendon. Postoperatively, she was treated with multimodal DVT prophylaxis, including aspirin. She was seen by Physical Therapy and made good progress with ambulation and stairs. I am having her weightbear 50% to protect her gluteus medius repair. On the first postoperative day, her hemoglobin and hematocrit were 10.5 and 32.9. She required a Rodriguez catheterization one time in the P ACU, but was able to void spontaneously after that. By the time of discharge, she was afebrile, was independent walking with a walker. DISPOSITION: Patient discharged to her home. She will go to outpatient physical therapy in my offic e. She will be 50% weightbearing on the left for 3 weeks. Continue aspirin 325 mg p.o. daily for 21 days. She has a prescription for oxycodone, tramadol, and Celebrex for pain control. I will see he r back in the office on August 25, 2018. If there any problems, she is to call me at the office. /[id number]/MODL
[2018-08-07 07:45] VITALS: BP 134/62
[2018-08-07] MEDS: ASPIRIN 325 MG TAB PO SCH (07:54)
[2018-08-07] MEDS: FAMOTIDINE 20 MG TAB PO SCH (07:54)
[2018-08-07] MEDS: SENNOSIDES/DOCUSATE SODIUM TAB PO SCH (07:54)
[2018-08-07] MEDS ORDERED: FERROUS SULFATE 325 MG TAB PO SCH (08:00)
[2018-08-07] MEDS: BUDESONIDE/FORMOTEROL 160/4.5 60 PUFFS/MDI IH SCH (08:41)
[2018-08-07] MEDS ORDERED: amLODIPine BESYLATE 5 MG TAB PO SCH (09:00)
--- NOTE | 2018-08-07 09:51 | ASMTLACE ---
LACE Length of stay for Answers: 1 day current admission Acuity / Level of Answers: Yes Care: Did the patient have an inpatient admission? Score: 4 Date Signed: 08/07/2018 09:51 AM Electronically Signed By:BARBER Lyn
--- NOTE | 2018-08-07 14:01 | ASMTCMCOM ---
CM Note CM Note Notes: Pt had planned OA of hip. MD and PT rec outpatient. Pt dghtr to assist 1-2 days. No CM d/c needs identified. Date Signed: 08/07/2018 02:00 PM Electronically Signed By:BARBER Lyn
== END 2018-08-07 14:07 | disposition home or self-care (01) | DRG 470 ==
LOC: F3E 09:31 → F3N 17:44
PROVIDERS: ADMIT Orthopaedic Surgery; ATTEND Orthopaedic Surgery
DX: M16.12 Unilateral primary osteoarthritis, left hip (principal); M66.862 Spontaneous rupture of other tendons, left lower leg; J44.9 Chronic obstructive pulmonary disease, unspecified; Z96.653 Presence of artificial knee joint, bilateral; Z96.641 Presence of right artificial hip joint; Z96.611 Presence of right artificial shoulder joint
CPT/HCPCS: 97116-GP; 97161-GP; 97165-GO; C1713; J0171; J0690; J1100; J1885; J2250; J2405; J2704; J2795; J3010; J3370

== ENCOUNTER → 2019-01-05 | Outpatient (CLI) | payer OTHER | LOC: FIMAGING 13:00 ==